=== PATIENT | female | born 1960 | race Caucasian/White ===

== ENCOUNTER 2025-03-06 18:15 | Observation (INO) | payer OTHER, SELFPAY ==
[2025-03-06] VITALS (13 sets, daily range): BP systolic 82–145; BP diastolic 67–131; PULSE 83–103; RESP 14–25; TEMP 36.9; O2SAT 94–100; BMI 48.6
--- NOTE | 2025-03-06 18:41 | RAD_ITS ---
PROCEDURE: LEFT ANKLE 2 VIEWS; FOOT 2 VIEWS; TIBIA FIBULA 2 VIEWS 03/06/2025 REASON FOR EXAM: TRAUMA TECHNIQUE: Procedure Code: RADANK2; RADFO2; RADTF Modality: DX Procedure: ANKLE 2 VIEWS; FOOT 2 VIEWS; TIBIA FIBULA 2 VIEWS Laterality: Left COMPARISON: None. FINDINGS: Acute trimalleolar left ankle fracture-dislocation injury, including anteromedial dislocation of the distal tibial plafond from the talar dome. Inferiorly displaced medial malleolus fracture. Posterior superiorly displaced distal tibial posterior malleolus fracture. Laterally displaced and overriding lateral malleolus fracture. Disruption of the distal tibiofibular syndesmosis. Osseous alignment of the foot appears maintained without evidence for Lisfranc disruption. Small plantar calcaneal spur. Preserved joint spaces. Generalized soft tissue swelling about the ankle. RAD/Ankle 2 Views IMPRESSION: Acute displaced left ankle trimalleolar fracture-dislocation, as described. Reading Location: [id number]
--- NOTE | 2025-03-06 18:41 | RAD_ITS ---
PROCEDURE: LEFT ANKLE 2 VIEWS; FOOT 2 VIEWS; TIBIA FIBULA 2 VIEWS 03/06/2025 REASON FOR EXAM: TRAUMA TECHNIQUE: Procedure Code: RADANK2; RADFO2; RADTF Modality: DX Procedure: ANKLE 2 VIEWS; FOOT 2 VIEWS; TIBIA FIBULA 2 VIEWS Laterality: Left COMPARISON: None. FINDINGS: Acute trimalleolar left ankle fracture-dislocation injury, including anteromedial dislocation of the distal tibial plafond from the talar dome. Inferiorly displaced medial malleolus fracture. Posterior superiorly displaced distal tibial posterior malleolus fracture. Laterally displaced and overriding lateral malleolus fracture. Disruption of the distal tibiofibular syndesmosis. Osseous alignment of the foot appears maintained without evidence for Lisfranc disruption. Small plantar calcaneal spur. Preserved joint spaces. Generalized soft tissue swelling about the ankle. RAD/Foot 2 Views IMPRESSION: Acute displaced left ankle trimalleolar fracture-dislocation, as described. Reading Location: [id number]
--- NOTE | 2025-03-06 18:41 | RAD_ITS ---
PROCEDURE: LEFT ANKLE 2 VIEWS; FOOT 2 VIEWS; TIBIA FIBULA 2 VIEWS 03/06/2025 REASON FOR EXAM: TRAUMA TECHNIQUE: Procedure Code: RADANK2; RADFO2; RADTF Modality: DX Procedure: ANKLE 2 VIEWS; FOOT 2 VIEWS; TIBIA FIBULA 2 VIEWS Laterality: Left COMPARISON: None. FINDINGS: Acute trimalleolar left ankle fracture-dislocation injury, including anteromedial dislocation of the distal tibial plafond from the talar dome. Inferiorly displaced medial malleolus fracture. Posterior superiorly displaced distal tibial posterior malleolus fracture. Laterally displaced and overriding lateral malleolus fracture. Disruption of the distal tibiofibular syndesmosis. Osseous alignment of the foot appears maintained without evidence for Lisfranc disruption. Small plantar calcaneal spur. Preserved joint spaces. Generalized soft tissue swelling about the ankle. RAD/Tibia & Fibula 2 Views IMPRESSION: Acute displaced left ankle trimalleolar fracture-dislocation, as described. Reading Location: [id number]
--- NOTE | 2025-03-06 18:46 | EDS_ITS ---
HPI History of Present Illness Chief Complaint: Lower Extremity Injury Narrative Narrative: Chief complaint and HPI: 64-year-old female with past medical history of DM, HTN, GERD, CKD presents for evaluation of left ankle pain. Patient states she was throwing away her water bottle in which she did not realize there was uneven ground. She tripped and landed on her left ankle. Obvious deformity to the left ankle. Denies any numbness or tingling. Denies any her head. No LOC. Not on blood thinners. Denies injury elsewhere. Review of systems: See HPI Medications: As listed on the chart Allergies: As listed on the chart PFSH: Per chart Vital signs: As listed on the chart. Reviewed. Physical exam: Gen: A&O x3, NAD Head: Normocephalic, atraumatic Eyes: No sclera icterus, conjunctiva clear ENT: Moist mucous membranes Neck: Full range of motion CV: RRR, no murmurs Resp: Lungs CTA BL, no w/r/c GI: Abd soft, non-distended, non-tender, no r/r/g Musc: Full ROM of all the extremities except for left lower extremity due to left ankle pain with obvious deformity, DP/PT pulses +2 bilaterally, compartments soft, normal capillary refill, sensation intact, knee without tenderness Skin: Warm, dry Neuro: Alert, oriented, grossly intact Psych: Cooperative, appropriate mood and affect [facility] Medical History (Updated 03/06/25 @ 18:24 by Trent Parekh) Stage 3 chronic kidney disease Nephrotic syndrome, focal and segmental glomerular lesions CPAP (continuous positive airway pressure) dependence Sleep apnea Diabetes mellitus Hypertension Hypercholesterolemia GERD (gastroesophageal reflux disease) Asthma Anemia Allergy/AdvReac Type Severity Reaction Status Date / Time diphenhydramine (From AdvReac Mild RESTLESS Verified 03/06/25 18:17 Benadryl) Social History Smoking Status: Never smoker EXAM Physical Exam Const Vital Signs: 03/06/25 18:16 03/06/25 19:49 03/06/25 19:49 Temperature 98.4 F Temperature Source Oral Pulse Rate 83 Pulse Rate [1 (Initial Baseline)] Pulse Rate [2] Pulse Rate [3] Pulse Rate [4] Respiratory Rate 14 Respiratory Rate [1 (Initial Baseline)] Respiratory Rate [2] Respiratory Rate [3] Respiratory Rate [4] Blood Pressure 136/82 H Blood Pressure [1 (Initial Baseline)] Blood Pressure [2] Blood Pressure [3] Blood Pressure [4] Blood Pressure Mean 100 Baseline BP Pulse Ox 97 96 Oxygen Delivery Method Room Air Room Air Oxygen Delivery Method [1 (Initial Baseline)] Oxygen Delivery Method [2] Oxygen Delivery Method [3] Oxygen Delivery Method [4] Oxygen Flow Rate (L/min) Oxygen Flow Rate (L/min) [1 (Initial Baseline)] Oxygen Flow Rate (L/min) [2] Oxygen Flow Rate (L/min) [3] Oxygen Flow Rate (L/min) [4] EtCo2 - Document during CPR and with ROSC 34 EtCo2 - Document during CPR and with ROSC [1 (Initial Baseline)] EtCo2 - Document during CPR and with ROSC [2] EtCo2 - Document during CPR and with ROSC [3] EtCo2 - Document during CPR and with ROSC [4] 03/06/25 19:57 03/06/25 20:10 03/06/25 20:12 Temperature Temperature Source Pulse Rate 91 90 Pulse Rate [1 (Initial Baseline)] 97 Pulse Rate [2] 101 H Pulse Rate [3] Pulse Rate [4] Respiratory Rate 14 19 H Respiratory Rate [1 (Initial Baseline)] 21 H Respiratory Rate [2] 16 Respiratory Rate [3] Respiratory Rate [4] Blood Pressure 138/79 H 123/71 H Blood Pressure [1 (Initial Baseline)] 145/67 H Blood Pressure [2] 137/80 H Blood Pressure [3] Blood Pressure [4] Blood Pressure Mean Baseline BP 138/79 Pulse Ox 95 98 Oxygen Delivery Method Room Air Nasal Cannula Oxygen Delivery Method [1 (Initial Baseline)] Nasal Cannula Oxygen Delivery Method [2] Nasal Cannula Oxygen Delivery Method [3] Oxygen Delivery Method [4] Oxygen Flow Rate (L/min) 2 Oxygen Flow Rate (L/min) [1 (Initial Baseline)] 2 Oxygen Flow Rate (L/min) [2] Oxygen Flow Rate (L/min) [3] Oxygen Flow Rate (L/min) [4] EtCo2 - Document during CPR and with ROSC 30 33 EtCo2 - Document during CPR and with ROSC [1 (Initial Baseline)] 30 EtCo2 - Document during CPR and with ROSC [2] 30 EtCo2 - Document during CPR and with ROSC [3] EtCo2 - Document during CPR and with ROSC [4] 03/06/25 20:15 03/06/25 20:20 03/06/25 22:50 Temperature Temperature Source Pulse Rate 94 86 94 Pulse Rate [1 (Initial Baseline)] Pulse Rate [2] Pulse Rate [3] Pulse Rate [4] Respiratory Rate 25 H 15 15 Respiratory Rate [1 (Initial Baseline)] Respiratory Rate [2] Respiratory Rate [3] Respiratory Rate [4] Blood Pressure 121/73 H 120/70 105/69 Blood Pressure [1 (Initial Baseline)] Blood Pressure [2] Blood Pressure [3] Blood Pressure [4] Blood Pressure Mean Baseline BP 105/69 Pulse Ox 97 97 94 Oxygen Delivery Method Room Air Room Air Nasal Cannula Oxygen Delivery Method [1 (Initial Baseline)] Oxygen Delivery Method [2] Oxygen Delivery Method [3] Oxygen Delivery Method [4] Oxygen Flow Rate (L/min) 97 4 Oxygen Flow Rate (L/min) [1 (Initial Baseline)] Oxygen Flow Rate (L/min) [2] Oxygen Flow Rate (L/min) [3] Oxygen Flow Rate (L/min) [4] EtCo2 - Document during CPR and with ROSC 34 33 39 EtCo2 - Document during CPR and with ROSC [1 (Initial Baseline)] EtCo2 - Document during CPR and with ROSC [2] EtCo2 - Document during CPR and with ROSC [3] EtCo2 - Document during CPR and with ROSC [4] 03/06/25 22:57 03/06/25 23:02 03/06/25 23:15 Temperature Temperature Source Pulse Rate 95 89 Pulse Rate [1 (Initial Baseline)] Pulse Rate [2] 103 H Pulse Rate [3] 93 Pulse Rate [4] 95 Respiratory Rate 20 H 15 Respiratory Rate [1 (Initial Baseline)] Respiratory Rate [2] 20 H Respiratory Rate [3] 20 H Respiratory Rate [4] 15 Blood Pressure 82/71 L 116/78 Blood Pressure [1 (Initial Baseline)] Blood Pressure [2] 143/75 H Blood Pressure [3] 141/131 H Blood Pressure [4] 127/79 H Blood Pressure Mean 74 Baseline BP Pulse Ox 100 97 Oxygen Delivery Method Nasal Cannula Nasal Cannula Oxygen Delivery Method [1 (Initial Baseline)] Oxygen Delivery Method [2] Nasal Cannula Oxygen Delivery Method [3] Nasal Cannula Oxygen Delivery Method [4] Room Air Oxygen Flow Rate (L/min) 4 2 Oxygen Flow Rate (L/min) [1 (Initial Baseline)] Oxygen Flow Rate (L/min) [2] 4 Oxygen Flow Rate (L/min) [3] 4 Oxygen Flow Rate (L/min) [4] 4 EtCo2 - Document during CPR and with ROSC 27 EtCo2 - Document during CPR and with ROSC [1 (Initial Baseline)] EtCo2 - Document during CPR and with ROSC [2] 34 EtCo2 - Document during CPR and with ROSC [3] 20 EtCo2 - Document during CPR and with ROSC [4] 28 03/06/25 23:20 03/06/25 23:25 Temperature Temperature Source Pulse Rate 91 95 Pulse Rate [1 (Initial Baseline)] Pulse Rate [2] Pulse Rate [3] Pulse Rate [4] Respiratory Rate 19 H 18 Respiratory Rate [1 (Initial Baseline)] Respiratory Rate [2] Respiratory Rate [3] Respiratory Rate [4] Blood Pressure 116/76 126/73 H Blood Pressure [1 (Initial Baseline)] Blood Pressure [2] Blood Pressure [3] Blood Pressure [4] Blood Pressure Mean Baseline BP Pulse Ox 98 95 Oxygen Delivery Method Room Air Room Air Oxygen Delivery Method [1 (Initial Baseline)] Oxygen Delivery Method [2] Oxygen Delivery Method [3] Oxygen Delivery Method [4] Oxygen Flow Rate (L/min) 97 Oxygen Flow Rate (L/min) [1 (Initial Baseline)] Oxygen Flow Rate (L/min) [2] Oxygen Flow Rate (L/min) [3] Oxygen Flow Rate (L/min) [4] EtCo2 - Document during CPR and with ROSC 30 33 EtCo2 - Document during CPR and with ROSC [1 (Initial Baseline)] EtCo2 - Document during CPR and with ROSC [2] EtCo2 - Document during CPR and with ROSC [3] EtCo2 - Document during CPR and with ROSC [4] MDM MDM MDM Narrative Medical decision making narrative: 64-year-old female with past medical history of DM, HTN, GERD, CKD presents for evaluation of left ankle pain. Patient states she was throwing away her water bottle in which she did not realize there was uneven ground. She tripped and landed on her left ankle. Obvious deformity to the left ankle. Denies any numbness or tingling. Denies any her head. No LOC. Not on blood thinners. Patient has received 10 mg of morphine prior to arrival via EMS. Differential diagnosis includes but is not limited to fracture, dislocation. Fentanyl and Zofran ordered. X-ray of the ankle, foot, tib/fib ordered. X-ray of the ankle, foot, tib-fib was personally viewed interpreted by me, ED physician. Patient has a displaced left ankle with trimalleolar fracture. Radiology in agreement. Patient will require procedural sedation for reduction and splinting. Patient received fentanyl and propofol without complications. Reduced and splinted. Repeat x-ray obtained. Repeat x-ray was personally reviewed and interpreted by me, ED physician. Improvement of dislocation and alignment. Dr. Galvan with orthopedics was consulted and patient was discussed. He reviewed the imaging. Recommended a repeat lateral x-ray. Repeat lateral x-ray shows slight dorsal subluxation. Dr. Galvan reviewed the imaging, plan is for re-reduction and splint with CT of the ankle. Patient again was sedated with propofol and fent anyl. Dr. Moy performed splinting while I performed sedation. The extremities neurovascular status was rechecked and was unchanged from the preprocedure exam. Patient tolerated this well. Postreduction x-rays and CT of the ankle ordered. Patient was taken to have CT scan before x-rays were performed. Therefore postreduction x-rays were canceled. CT scan of the ankle pending at this time.Patient signed out to oncoming physician. Final disposition pending result of CT as well as pain control. Joint Reduction with procedural sedation Indication: Trimalleolar left ankle fracture with dislocation Consent: Risks, benefits, and alternatives discussed with patient and consent obtained Procedure: The patient was given a total of 90 mg of propofol for adequate procedural sedation and 50 mg of fentanyl. The dislocation was reduced to the best of my abilities utilizing traction and rotation technique. Following reduction, immobilization was performed with splint placement. Splint was made with splint sleeve, Webril, Ortho-Glass, and Jude bandage. The extremity's neurovascular status was rechecked and was unchanged from the preprocedure exam. The extremity's neurovascular status was re-checked and was unchanged from the pre-procedure exam. The patient tolerated the procedure without complications. Time: Total intra-service time with patient for procedural sedation was 8 [address] Procedural Sedation Consent: Risks, benefits, and alternatives discussed with patient and consent obtained Medication IV: 90 mg of propofol and 50 mg of fentanyl Complication: Tolerated well without complication Time: Total intra-service time with patient was 8 minutes Impression: 1. Left trimalleolar ankle fracture with dislocation, status post reduction and splint x 2 2. Mechanical fall Radiography Diagnostic Testing: Clinical Impression(s) from Imaging Studies Ankle X-Ray 03/06/25 18:41 IMPRESSION: Acute displaced left ankle trimalleolar fracture-dislocation, as described. Reading Location: [facility] Foot X-Ray 03/06/25 18:41 IMPRESSION: Acute displaced left ankle trimalleolar fracture-dislocation, as described. Reading Location: [facility] Tibia/Fibula X-Ray 03/06/25 18:41 IMPRESSION: Acute displaced left ankle trimalleolar fracture-dislocation, as described. Reading Location: [facility] Ankle X-Ray 03/06/25 20:34 IMPRESSION: Closed reduction and splinting of the left ankle for previously described trimalleolar fracture-dislocation injury, with improved osseous alignment. Reading Location: [facility] Ankle X-Ray 03/06/25 21:56 IMPRESSION: Lateral view of the previously described trimalleolar left ankle fracture- dislocation injury status post closed reduction and splinting, as described above. Reading Location: [facility] Discharge Plan Triage Chief Complaint: Lower Extremity Injury ED Provider: Keenan Max Dx/Rx/DC Orders Primary Care Provider: AKIN RAPP Referrals: AKIN RAPP [Other] Print Language: Swedish
[2025-03-06] MEDS: fentaNYL 100 MCG/2 ML Ampul 50 MCG IV ×4 (18:47→22:47)
--- NOTE | 2025-03-06 20:34 | RAD_ITS ---
PROCEDURE: LEFT ANKLE MIN 3 VIEWS 03/06/2025 REASON FOR EXAM: S/P REDUCTION AND SPLINT TECHNIQUE: Procedure Code: RADANK Modality: DX Procedure: ANKLE MIN 3 VIEWS Laterality: Left COMPARISON: Earlier same day. FINDINGS: Status post closed reduction and splinting of the previously described trimalleolar left ankle fracture-dislocation, with improved osseous alignment with moravian of the tibiotalar articulation. Persistent widening of the medial clear space and widening/disruption of the distal tibiofibular syndesmosis. Generalized soft tissue swelling about the ankle. RAD/Ankle min 3 Views IMPRESSION: Closed reduction and splinting of the left ankle for previously described trima lleolar fracture-dislocation injury, with improved osseous alignment. Reading Location: [id number]
--- NOTE | 2025-03-06 21:56 | RAD_ITS ---
PROCEDURE: LEFT ANKLE 2 VIEWS 03/06/2025 REASON FOR EXAM: REPEAT LATERAL X-RAY TECHNIQUE: Procedure Code: RADANK2 Modality: DX Procedure: ANKLE 2 VIEWS Laterality: Left COMPARISON: Earlier same day. FINDINGS: Lateral view radiographs of the left ankle. Redemonstrated trimalleolar fracture-dislocation injury status post closed reduction and splinting. Persistent slight dorsal subluxation of the talar dome with respect to the distal tibial plafond. Mild dorsal displacement of the posterior and lateral malleolus fracture fragments. Generalized soft tissue swelling about the ankle. RAD/Ankle 2 Views IMPRESSION: Lateral view of the previously described trimalleolar left ankle fracture-dislo cation injury status post closed reduction and splinting, as described above. Reading Location: [id number]
--- NOTE | 2025-03-06 23:13 | CT_ITS ---
PROCEDURE: EXTREMITY LOWER WITHOUT CONTRA 03/06/2025 REASON FOR EXAM: FRACTURE TECHNIQUE: Procedure Code: CTELWO Modality: CT Procedure: EXTREMITY LOWER WITHOUT CONTRA Coronal and Sagittal reconstruction series were provided. CONTRAST: None. One or more dose reduction techniques were used (e.g., Automated exposure control, adjustment of the mA and/or kV according to patient size, use of iterative reconstruction technique). RADIATION DOSE SUMMARY: CTDlvol: 15.35 mGy DLP: 461 mGycm COMPARISON: Radiographs on 03/06/2025. FINDINGS: Acute displaced trimalleolar fractures. Acute nondisplaced fractures in the bases of the 2nd and 3rd metatarsal bones. Acute mildly displaced fracture of the distal aspect of the medial cuneiform bone. Soft tissue edema and swelling. Detached bone fragment adjacent to the distal aspect of the proximal phalanx of the big toe of indeterminate chronicity. Calcaneal spur formation. Enthesophyte formation at the calcaneal insertion of Achilles tendon. Tiny bone fragments are noted in the tibiotalar joint space. Mild degenerative joint disease. CT/Extremity Lower without Contra IMPRESSION: Acute displaced trimalleolar fractures. Acute nondisplaced fractures in the bases of the 2nd and 3rd metatarsal bones. Acute mildly displaced fracture of the distal aspect of the medial cuneiform lia ne. Soft tissue edema and swelling. Detached bone fragment adjacent to the distal aspect of the proximal phalanx of the big toe of indeterminate chronicity. Calcaneal spur formation. Enthesophyte formation at the calcaneal insertion of Achilles tendon. Tiny bone fragments are noted in the tibiotalar joint space. Reading [facility]
[2025-03-06] MEDS: 0.9% Normal Saline (1000mL) 1,000 ML 999 ML IV (23:18)
[2025-03-07] VITALS (7 sets, daily range): BP systolic 144–156; BP diastolic 82–100; PULSE 88–98; RESP 16–20; TEMP 36.4–36.8; O2SAT 95–97; BMI 45.7; BMI 45.5
[2025-03-07] MEDS: HYDROmorphone 0.5 MG/0.5 ML SYRINGE IV (02:23)
--- NOTE | 2025-03-07 02:57 | HP.PCM.HOS_ITS ---
HPI - General General Date of Admission: 03/07/25 Date of Service: 03/07/25 Chief Complaint: Fall, L ankle pain/deformity. HPI Narrative The patient is a 64 y/o F w/ PMHx: Morbid obesity, NISHI on BIPAP, HTN, HLD, GERD, Asthma, CKD stage III unclear subtype, Diabetes mellitus type II who presents to the [facility] ED on 03/07/2025 with history of unfortunately tripping on a bottle on the ground landing on her left ankle with significant pain and deformity following with the paresthesias but today developing pain prompted ED evaluation. Patient is actually from up near [place] but has been on a mini vacation with her . Workup in the ED included left ankle with an acute displaced left ankle trimalleolar fracture/dislocation, left foot with an acute displaced left ankle trimalar fracture/dislocation, left tib-fib with an acute displaced left ankle trimalar fracture/dislocation, left ankle with a closed reduction and splinted left ankle for previously describe trimalar fracture/dislocation injury with improved osseous alignment, lateral view the previously described trimalar left ankle fracture/dislocation injury status post closed reduction and splinting, left lower extremity CT with acute displaced trimalar fractures, acute nondisplaced fractures in the base of the 2nd and 3rd metatarsal bones, acute mildly displaced fracture of the distal aspect of the medial cuneiform bone, soft tissue edema and swelling, detached bone fragment adjacent to the distal aspect of the proximal phalanx of the big toe of indeterminate chronicity, calcaneal spur formation, NSL fight formation at the calcaneal insertion of the Achilles tendon, tiny bone fragments noted at the tibial talar joint space. ED discussed case with Dr. Galvan orthopedic surgeon. In the ED patient ministered 1 L normal saline, propofol 200 mg IV bolus x 2 for reduction, morphine 4 mg IV x 1, Dilaudid 0.5 mg IV x 1, fentanyl 50 mcg IV x 4 rounds, fentanyl 75 mcg IV x 1. Orthopedic surgeon noted no intention of acute surgical needs and likely patient will need follow-up evaluation with possible surgery in 1 to 2 weeks but given inability to walk and pain ED contacted hospitalist for consideration of skilled transition. [facility] Medical History Stage 3 chronic kidney disease Nephrotic syndrome, focal and segmental glomerular lesions CPAP (continuous positive airway pressure) dependence Sleep apnea Diabetes mellitus Hypertension Hypercholesterolemia GERD (gastroesophageal reflux disease) Asthma Anemia Home Medications ?Medication ?Instructions ?Recorded ?Last Taken ?Type diltiazem HCl 240 mg 240 mg PO DAILY 03/07/25 Unk nown History capsule,extended release 24 hr lisinopril 40 mg tablet 80 mg PO DAILY 03/07/25 Unkn own History magnesium oxide 400 mg (241.3 mg 400 mg PO BID 5 Unknown History magnesium) tablet montelukast 10 mg tablet 10 mg PO QHS 03/07/25 Unknow n History pantoprazole 40 mg tablet,delayed 40 mg PO DAILY 03/07 Unknown History release rosuvastatin 20 mg tablet 20 mg PO DAILY 03/07/25 Unkn own History semaglutide 7 mg tablet (Rybelsus) 7 mg PO DAILY 03/07 Unknown History tacrolimus 1 mg capsule, 2 mg PO BID 03/07/25 Unknown History immediate-release Allergy/AdvReac Type Severity Reaction Status Date / Time diphenhydramine (From AdvReac Mild RESTLESS Verified 03/06/25 18:17 Benadryl) Family History (Updated 03/07/25 @ 03:[address] Tonia Melton MD) Mother CVA (cerebral vascular accident) Cancer Father Dementia Surgical History (Updated 03/07/25 @ 03:[address] Tonia Melton MD) Hx of cataract extraction H/O section Social History (Updated 03/07/25 @ 03:[address] Tonia Melton MD) household members: spouse Smoking Status: Never smoker alcohol intake: never substance use type: does not use ROS ROS Narrative Admission Review of Systems: CONSTITUTIONAL: No weight loss, fever, chills, + weakness or fatigue. HEENT: Eyes: No visual loss, blurred vision, double vision or yellow sclerae. Ears, Nose, Throat: No hearing loss, sneezing, congestion, runny nose or sore throat. SKIN: No rash or itching, lesions, wounds except + stage ecchymoses, abrasions. CARDIOVASCULAR: No chest pain, chest pressure or chest discomfort, palpitations, edema, orthopnea, syncopal events. RESPIRATORY: No shortness of breath, cough or sputum, wheezing, hemoptysis. GASTROINTESTINAL: No anorexia, nausea, vomiting or diarrhea, abdominal pain, melena, BRBPR. GENITOURINARY: No dysuria, frequency, urgency or retention. NEUROLOGICAL: No headache, dizziness, syncope, paralysis, ataxia, numbness or tingling in the extremities, focal weakness, change in bowel or bladder control, seizure. MUSCULOSKELETAL: + muscle, back pain, joint pain or stiffness. HEMATOLOGIC: + Chronic anemia, no specific easy history of bleeding/bruising. LYMPHATICS: No enlarged nodes. No history of splenectomy. PSYCHIATRIC: No history of depression or anxiety. ENDOCRINOLOGIC: No reports of sweating, cold or heat intolerance. No polyuria or polydipsia. ALLERGIES: + History of asthma, allergic rhinitis. Vital Signs Vital Signs Vital Signs: 03/06/25 18:16 03/06/25 19:49 03/06/25 19:49 Temperature 98.4 F Temperature Source Oral Pulse Rate 83 Pulse Rate [1 (Initial Baseline)] Pulse Rate [2] Pulse Rate [3] Pulse Rate [4] Respiratory Rate 14 Respiratory Rate [1 (Initial Baseline)] Respiratory Rate [2] Respiratory Rate [3] Respiratory Rate [4] Blood Pressure 136/82 H Blood Pressure [1 (Initial Baseline)] Blood Pressure [2] Blood Pressure [3] Blood Pressure [4] Blood Pressure Mean 100 Baseline BP Pulse Ox 97 96 Oxygen Delivery Method Room Air Room Air Oxygen Delivery Method [1 (Initial Baseline)] Oxygen Delivery Method [2] Oxygen Delivery Method [3] Oxygen Delivery Method [4] Oxygen Flow Rate (L/min) Oxygen Flow Rate (L/min) [1 (Initial Baseline)] Oxygen Flow Rate (L/min) [2] Oxygen Flow Rate (L/min) [3] Oxygen Flow Rate (L/min) [4] EtCo2 - Document during CPR and with ROSC 34 EtCo2 - Document during CPR and with ROSC [1 (Initial Baseline)] EtCo2 - Document during CPR and with ROSC [2] EtCo2 - Document during CPR and with ROSC [3] EtCo2 - Document during CPR and with ROSC [4] 03/06/25 19:57 03/06/25 20:10 03/06/25 20:12 Temperature Temperature Source Pulse Rate 91 90 Pulse Rate [1 (Initial Baseline)] 97 Pulse Rate [2] 101 H Pulse Rate [3] Pulse Rate [4] Respiratory Rate 14 19 H Respiratory Rate [1 (Initial Baseline)] 21 H Respiratory Rate [2] 16 Respiratory Rate [3] Respiratory Rate [4] Blood Pressure 138/79 H 123/71 H Blood Pressure [1 (Initial Baseline)] 145/67 H Blood Pressure [2] 137/80 H Blood Pressure [3] Blood Pressure [4] Blood Pressure Mean Baseline BP 138/79 Pulse Ox 95 98 Oxygen Delivery Method Room Air Nasal Cannula Oxygen Delivery Method [1 (Initial Baseline)] Nasal Cannula Oxygen Delivery Method [2] Nasal Cannula Oxygen Delivery Method [3] Oxygen Delivery Method [4] Oxygen Flow Rate (L/min) 2 Oxygen Flow Rate (L/min) [1 (Initial Baseline)] 2 Oxygen Flow Rate (L/min) [2] Oxygen Flow Rate (L/min) [3] Oxygen Flow Rate (L/min) [4] EtCo2 - Document during CPR and with ROSC 30 33 EtCo2 - Document during CPR and with ROSC [1 (Initial Baseline)] 30 EtCo2 - Document during CPR and with ROSC [2] 30 EtCo2 - Document during CPR and with ROSC [3] EtCo2 - Document during CPR and with ROSC [4] 03/06/25 20:15 03/06/25 20:20 03/06/25 22:50 Temperature Temperature Source Pulse Rate 94 86 94 Pulse Rate [1 (Initial Baseline)] Pulse Rate [2] Pulse Rate [3] Pulse Rate [4] Respiratory Rate 25 H 15 15 Respiratory Rate [1 (Initial Baseline)] Respiratory Rate [2] Respiratory Rate [3] Respiratory Rate [4] Blood Pressure 121/73 H 120/70 105/69 Blood Pressure [1 (Initial Baseline)] Blood Pressure [2] Blood Pressure [3] Blood Pressure [4] Blood Pressure Mean Baseline BP 105/69 Pulse Ox 97 97 94 Oxygen Delivery Method Room Air Room Air Nasal Cannula Oxygen Delivery Method [1 (Initial Baseline)] Oxygen Delivery Method [2] Oxygen Delivery Method [3] Oxygen Delivery Method [4] Oxygen Flow Rate (L/min) 97 4 Oxygen Flow Rate (L/min) [1 (Initial Baseline)] Oxygen Flow Rate (L/min) [2] Oxygen Flow Rate (L/min) [3] Oxygen Flow Rate (L/min) [4] EtCo2 - Document during CPR and with ROSC 34 33 39 EtCo2 - Document during CPR and with ROSC [1 (Initial Baseline)] EtCo2 - Document during CPR and with ROSC [2] EtCo2 - Document during CPR and with ROSC [3] EtCo2 - Document during CPR and with ROSC [4] 03/06/25 22:57 03/06/25 23:02 03/06/25 23:15 Temperature Temperature Source Pulse Rate 95 89 Pulse Rate [1 (Initial Baseline)] Pulse Rate [2] 103 H Pulse Rate [3] 93 Pulse Rate [4] 95 Respiratory Rate 20 H 15 Respiratory Rate [1 (Initial Baseline)] Respiratory Rate [2] 20 H Respiratory Rate [3] 20 H Respiratory Rate [4] 15 Blood Pressure 82/71 L 116/78 Blood Pressure [1 (Initial Baseline)] Blood Pressure [2] 143/75 H Blood Pressure [3] 141/131 H Blood Pressure [4] 127/79 H Blood Pressure Mean 74 Baseline BP Pulse Ox 100 97 Oxygen Delivery Method Nasal Cannula Nasal Cannula Oxygen Delivery Method [1 (Initial Baseline)] Oxygen Delivery Method [2] Nasal Cannula Oxygen Delivery Method [3] Nasal Cannula Oxygen Delivery Method [4] Room Air Oxygen Flow Rate (L/min) 4 2 Oxygen Flow Rate (L/min) [1 (Initial Baseline)] Oxygen Flow Rate (L/min) [2] 4 Oxygen Flow Rate (L/min) [3] 4 Oxygen Flow Rate (L/min) [4] 4 EtCo2 - Document during CPR and with ROSC 27 EtCo2 - Document during CPR and with ROSC [1 (Initial Baseline)] EtCo2 - Document during CPR and with ROSC [2] 34 EtCo2 - Document during CPR and with ROSC [3] 20 EtCo2 - Document during CPR and with ROSC [4] 28 03/06/25 23:20 03/06/25 23:25 03/07/25 02:00 Temperature Temperature Source Pulse Rate 91 95 98 Pulse Rate [1 (Initial Baseline)] Pulse Rate [2] Pulse Rate [3] Pulse Rate [4] Respiratory Rate 19 H 18 18 Respiratory Rate [1 (Initial Baseline)] Respiratory Rate [2] Respiratory Rate [3] Respiratory Rate [4] Blood Pressure 116/76 126/73 H 156/85 H Blood Pressure [1 (Initial Baseline)] Blood Pressure [2] Blood Pressure [3] Blood Pressure [4] Blood Pressure Mean 108 Baseline BP Pulse Ox 98 95 95 Oxygen Delivery Method Room Air Room Air Room Air Oxygen Delivery Method [1 (Initial Baseline)] Oxygen Delivery Method [2] Oxygen Delivery Method [3] Oxygen Delivery Method [4] Oxygen Flow Rate (L/min) 97 Oxygen Flow Rate (L/min) [1 (Initial Baseline)] Oxygen Flow Rate (L/min) [2] Oxygen Flow Rate (L/min) [3] Oxygen Flow Rate (L/min) [4] EtCo2 - Document during CPR and with ROSC 30 33 EtCo2 - Document during CPR and with ROSC [1 (Initial Baseline)] EtCo2 - Document during CPR and with ROSC [2] EtCo2 - Document during CPR and with ROSC [3] EtCo2 - Document during CPR and with ROSC [4] Weight Weight: 301 lb 9.478 oz Body Mass Index (BMI) 48.6 Physical Exam Narrative Physical Examination: General: Awake, alert, oriented x 3 and cooperative, laying in ED bed, fatigued, reports 4-5 out of 10 in severity left ankle discomfort, dull aching throbbing. Skin: Normal color, normal turgor, no icterus, no cyanosis except occasional stage ecchymoses, abrasion. HEENT: AT/NC, EOMI, PERRLA, mildly dry MM, no carotid bruits, difficult discern JVD given thickened neck. Lungs: Mildly diminished, greater bases, proper effort, no rales, ronchi or wheezing. Heart: Regular rate and rhythm; no gallop, rub audible. Abdomen: Soft, morbidly obese, NTTP, distant BS, difficult to discern distention and HSM given habitus. Extremities: No cyanosis, no clubbing, no significant right lower extremity edema, left lower extremity status post reduction with splinting in place, able to move toes, sensation intact. Neurological: Patient awake, alert, oriented as noted, cognitive function intact; pupils equally reactive to light and accommodation, cranial nerves grossly normal, moving all 4 extremities except limited left lower extremity movement given fall with ankle fracture with recent splinting, strength severely globally decreased. Psychiatric: Affect appears fatigued, no acute evidence of depressive or anxiety feelings. Results Imaging Radiology Impression Ankle X-Ray 03/06/25 18:41 IMPRESSION: Acute displaced left ankle trimalleolar fracture-dislocation, as described. Reading Location: [id number] Foot X-Ray 03/06/25 18:41 IMPRESSION: Acute displaced left ankle trimalleolar fracture-dislocation, as described. Reading Location: [facility] Tibia/Fibula X-Ray 03/06/25 18:41 IMPRESSION: Acute displaced left ankle trimalleolar fracture-dislocation, as described. Reading Location: [facility] Ankle X-Ray 03/06/25 20:34 IMPRESSION: Closed reduction and splinting of the left ankle for previously described trimalleolar fracture-dislocation injury, with improved osseous alignment. Reading Location: [facility] Ankle X-Ray 03/06/25 21:56 IMPRESSION: Lateral view of the previously described trimalleolar left ankle fracture- dislocation injury status post closed reduction and splinting, as described above. Reading Location: [id number] Lower Extremity CT 03/06/25 23:13 IMPRESSION: Acute displaced trimalleolar fractures. Acute nondisplaced fractures in the bases of the 2nd and 3rd metatarsal bones. Acute mildly displaced fracture of the distal aspect of the medial cuneiform bone. Soft tissue edema and swelling. Detached bone fragment adjacent to the distal aspect of the proximal phalanx of the big toe of indeterminate chronicity. Calcaneal spur formation. Enthesophyte formation at the calcaneal insertion of Achilles tendon. Tiny bone fragments are noted in the tibiotalar joint space. Reading Location: [id number] Assessment & Plan Assessment/Plan (1) Closed trimalleolar fracture: PLAN: Plan The patient is a 64 y/o F w/ PMHx: Morbid obesity, NISHI on BIPAP, HTN, HLD, GERD, Asthma, Chronic anemia unclear type, CKD stage III unclear subtype, Diabetes mellitus type II who presents to the [facility] ED on 03/07/2025 with history of unfortunately tripping on a bottle on the ground landing on her left ankle with significant pain and deformity following with the paresthesias but today developing pain prompted ED evaluation. #1. Mechanical fall with acute displaced left ankle trimalleolar fracture/dislocation with significant debility, intractable pain, adult failure to thrive: Will admit to medical surgical floor, maintain on fall precautions, nonweightbearing to the left lower extremity, elevate as able, will continue ED initiated orthopedic surgery consultation with Dr. Galvan although currently no intention for acute surgical intervention reportedly but potentially the next 1 to 2 weeks and given patient is out of town recommended that she discuss with Dr. Galvan potential surgeons in her area, will have as needed pain regimen, antiemetic regimen, PT/OT/case management consulted for discharge planning and patient notes preference to potentially transition to skilled if appropriate in her area as she is from out of town. #2. Chronic Kidney Disease Stage III reported per patient but no labs available to confirm: Admission BUN/Cr pending, baseline renal function unknown, will trend to further elucidate chronicity. Per discussion with patient she is on prophylactic tacrolimus 2 mg twice daily as well as high-dose 80 mg once daily lisinopril per her planer setup operator. Discussed with patient at this time we will decrease lisinopril down to 40 mg daily. Encouraged her to follow-up and review these items. #3. Chronic anemia, unclear type: Reported per patient but no labs available, admission hemoglobin/MCV pending, baseline hemoglobin unknown, will trend to further elucidate chronicity. #4. Hypertension: Continue home regimen including diltiazem, lisinopril with hold parameters as needed, PRN hydralazine. Discussed with patient at this time we will decrease her lisinopril to 40 mg as she is reportedly on 80 mg daily per her planer setup operator. #5. Hyperlipidemia: Wilkening patient on statin therapy. #6. Diabetes mellitus type II: Hold oral home regimen, ADA diet, accu checks w/ ISS. #7. Morbid Obesity: Weight loss and lifestyle changes encouraged. #8. Chronic asthma with allergic rhinitis: Not on chronic inhaler per current list, will have as needed albuterol, encourage head of bed and I-S, Will continue patient on montelukast regimen. #9. GERD: Will continue patient on PPI. #10. NISHI: BiPAP nightly. #11. DVT prophylaxis: Lovenox. Charges/Coding Visit Charges Inpatient E&M: 71524 Init Hosp L3
[2025-03-07 06:57] LABS: Hematocrit 36.4 % (37-47); Hemoglobin 11.3 g/dL (12.0-15.0); Immature Granulocytes Count 0.080 X10^3/uL (0.0-0.0); Mean Corp Hgb Conc 31.0 g/dL (32-36); Mean Corpuscular Volume 96.6 fL (81-99); Mean Platelet Vol. 9.8 fl (6.2-12.0); NRBC Flagged by Analyzer 0 % (0-5); Platelet Count 259 K/mm3 (150-450); RBC Distribution Width CV 14.0 % (11.6-14.6); RBC Distribution Width SD 49.2 fl (35.1-43.9); Red Blood Count 3.77 M/mm3 (4.2-5.4); White Blood Count 15.6 K/mm3 (4.4-11.0)
[2025-03-07 07:23] LABS: AST(SGOT) 20 U/L (<=31); Alanine Aminotransfer ALT/SGPT 17 U/L (<=34); Albumin, Serum 3.8 g/dL (3.4-4.8); Alkaline Phosphatase 73 U/L (35-104); Anion Gap 10 (5-15); BUN 37 mg/dL (4-19); BUN/Creat Ratio 23.1 RATIO (10-20); Calcium,Total 9.0 mg/dL (7.6-11.0); Carbon Dioxide 18.1 mmol/L (21.0-32.0); Chloride 112 mmol/L (98-108); Estimated Creatinine Clearance 48.13 ml/min (50-250); Globulin 3.2 g/dL (2.2-4.2); Glucose 137 mg/dL (70-99); Potassium 5.3 mmol/L (3.3-5.1)
[2025-03-07] MEDS: CLARIFY ORDER 1 EACH NOTE ×2 (08:04→11:15)
[2025-03-07] MEDS: Senna/Docusate Sodium 1 Tablet 2 TABLET PO ×2 (08:08→23:14)
--- NOTE | 2025-03-07 11:35 | CASEMGMT ---
Addendum entered by Shashi Conn 03/07/25 13:20: Pt made aware unable to locate a knee sling for walker @ any local DME companies, but that they are available on [employer]. Pt went on [employer] and has ordered the knee sling and states it should arrive @ her home tomorrow. She states she thinks they may already have a walker w/wheels, in addition to a rollator. Her family is checking on this and she will also check to see if the W/C is available. She states if they have the WW and W/C, she feels safe discharging home today and denies needing other DME. Addendum entered by Shashi Conn 03/07/25 12:10: Pt states she was in [place] for a [employer] booking [employer]. She lives about an hour away. She plans to f/u with a surgeon closer to where she lives. Original Note: RN?CM?ASSESSMENT ? RN?CM?to room to meet with patient for initial transition planning/care coordination?assessment.?RN?CM?introduced self and role at [facility].? Pt voices understanding and consents to?assessment?at this time.? Pt sitting up in chair in room in no distress at this time.? Pt is A/O at this time and answers all questions appropriately.?? Care providers, pharmacy, and demographics verified/updated at this time. ? Strata: 1 PCP: Dr Vivian Bermeo Specialists: Dr Lacho Weir-nephrology Preferred Pharmacy: [facility] @ discharge. Otherwise, goes to [facility] [place] Insurance:[facility]. Prescription Benefit:?Yes LNOK: , Lj. Daughter Living Arrangements: Pt lives in 2-story home w/3 steps to enter w/handrail on one side. Pt lives w/her , her mother, 31-yr-old daughter and grandson. Pt's bedroom is on the 2nd floor and there are 2 full bathrooms on the 2nd floor. There is a 1/2 bath on 1st floor. Pt states she could either sleep on the couch on the 1st floor or on the recliner until she is able to get up the stairs. She feels she is able to get up the 3 steps into the home. Pt was independent w/ADL's and IADL's and works from home. Daughter helps w/home mgnt tasks. Transportation:?Pt and both drive. will be coming to take pt home @ discharge. DME: States has the following DME:?shower chair, grab bars, CPAP, rollator (is her mom's but she does not use it), adjustable bed. She thinks they have a W/C in the basement, she will have her check. She has access to a knee scooter. Pt would like a walker w/knee sling @ discharge and she denies having preference of DME co. She denies having other DME needs. HHC/SNF: No hx of either. ? Discussed discharge planning. Pt wishes to return home. She declines the need for HHC or OP therapy. Made aware to f/u with her PCP if she changes her mind once returning home. Pt wishes to return home and states has no further concerns with going home at time of discharge. CM?to follow for any further discharge planning/needs.? Advised pt to ask for?CM?if any further questions/concerns/needs arise.? Voices understanding. ? PLAN:??Home w/walker and knee sling. ? Lyn BSN?RN?CM
--- NOTE | 2025-03-07 14:26 | CASEMGMT ---
Addendum entered by Tasha Plaza 03/07/25 14:49: Provided pt with FWW per request of [facility]. Pt signed consignment form and uploaded and sent to [facility] via [employer]. Original Note: RN CM into pt room, pt lying in bed in no distress. Pt states she does not know if she has a FWW. Pt called dtr while RN CM in room, she states they do not have a FWW. Provided pt with a verbal local in network list of DME providers, pt chose [facility]. Referral sent to [facility] for FWW. Pt states her knee sling will arrive tomorrow from [employer] to her home. Pt denies any further needs.
--- NOTE | 2025-03-07 15:06 | PCM.HOSP.N ---
Hospitalist Note Patient was seen and examined today, she sustained a left trimalleolar fracture from a fall at home. She ordered a knee walker from [employer], it will be delivered tomorrow, until then the patient will stay in the hospital be seen by PT and OT. She will need follow-up with orthopedic surgery as an outpatient. If the patient remains medically stable, discharge can be considered on 03/08/2025
--- NOTE | 2025-03-07 16:30 | CON.PCM_ITS ---
Assessment & Plan Assessment/Plan (1) Closed trimalleolar fracture: (2) Metatarsal fracture: (3) Foot, fracture, cuneiform: (4) Fall: PLAN: Plan Patient seen and evaluated bedside with present. I did review radiographs demonstrating unstable trimalleolar displaced fracture of the left ankle prereduction. Postreduction films were also reviewed with improvement noted, however instability does remain secondary to nature of the fracture. AO splint is intact to the left lower extremity. CT was also obtained for fracture evaluation/surgical planning. These were reviewed. I did discuss with the patient the nature of her fracture in addition to the instability and the need for surgical intervention. Patient had been immobilized however soft tissue swelling and ecchymosis required delay due to risk of possible fracture blistering. I discussed with the patient to recommend delaying surgical intervention for next 7 to 10 days prior to undergoing ORIF as she is also a diabetic and fracture blistering would lead to wound dehiscence and infection complication. Patient is understanding of these risks and the need for surgical fixation. Patient states that she does not live around [place] and does live in [place], [place] which is roughly 1 hour away. She request surgical intervention closer to her home. I did discuss with her it is important to remain nonweightbearing to the left lower extremity at all times due to instability of the fracture and further displacement. She will utilize assistance of walker to maintain compliance. Discussed keeping the AO splint clean, dry, and intact to the left lower extremity. She is to also to elevate the leg at all times of rest for edema control. May continue to apply ice behind the left knee for pain control. She will continue to take all pain medication as directed. Recommended extra strength Tylenol between dosing and avoidance of ibuprofen as she is a diabetic with renal impairment. Medicine team currently following for medical management, they are appreciated Due to the need to delay ORIF as stated above and her wishes to have the surgical procedure closer to her home so that she may follow for continued postoperative visits she may be discharged once stable. She will follow-up with provider of her choice for the surgical intervention closer to her home town. Podiatry to sign off Juan Quesada Jr. D.P.M. [facility] [phone] HPI Consult Data Date of Consult: 03/07/25 HPI Narrative Reason for Consultation: Displaced trimalleolar fracture left ankle HPI Narrative: ADIA PHAN, is a 64 F who presents to [facility] secondary to fall in which she had fractured her left ankle evening of 03/06/2025. She has PMHx of DM type II, CKD stage III, morbid obesity, NISHI on BiPAP, HTN, HLD, GERD, asthma. Patient reports that she was in town for a scrapbooking conference and had just gotten to the hotel when she did not see a small step up and tripped resulting in fracture of the left ankle. She was brought to [facility] where radiographs were obtained of the left ankle demonstrating displaced trimalleolar fracture and this underwent reduction in ED with splinting. Patient was unable to utilize crutches at the time and was admitted for pain control. Hospitalist did discuss case with Dr. Galvan and due to accompanying nondisplaced fractures of the base of the 2nd and 3rd metatarsal bones and medial cuneiform bone was referred to podiatry for management of the left lower extremity. CT was ordered for fracture planning. PT did work with her for nonweightbearing status with utilization of a walker and she is noted to do fairly well with this. Podiatry consulted for further evaluation. [facility] Medical History (Updated 03/07/25 @ 04:52 by Monse Garza) Kidney disease Stage 3 chronic kidney disease Nephrotic syndrome, focal and segmental glomerular lesions CPAP (continuous positive airway pressure) dependence Sleep apnea Diabetes mellitus Hypertension Hypercholesterolemia GERD (gastroesophageal reflux disease) Asthma Anemia Home Medications ?Medication ?Instructions ?Recorded ?Last Taken ?Type allopurinol 100 mg tablet 100 mg PO BID gout 03/07/25 Unknown History calcium carbonate 1,200 mg PO DAILY supplement 03/07/25 Unknown History cholecalciferol (vitamin D3) 50 50 mcg PO DAILY supple ment 03/07/25 Unknown History mcg (2,000 unit) tablet (D3 DOTS) diltiazem HCl 240 mg 240 mg PO .HS heart palpitat ions 03/07/25 Unknown History capsule,extended release 24 hr ferrous sulfate 325 mg (65 mg 325 mg PO TID anemia Unknown History iron) tablet furosemide 40 mg tablet (Lasix) 40 mg PO PRN water pil l 03/07/25 Unknown History lisinopril 40 mg tablet 40 mg PO BID hypertension 03/06/25 09:00 History magnesium oxide 400 mg (241.3 mg 400 mg PO BID gout Unknown History magnesium) tablet montelukast 10 mg tablet 10 mg PO QHS asthma 03/07/25 Unknown History multivitamin (Daily Multi-Vitamin 1 tab PO DAILY suppl ement 03/07/25 Unknown History tablet) pantoprazole 40 mg tablet,delayed 40 mg PO DAILY GERD 03/07/25 Unknown History release patiromer calcium sorbitex 8.4 8.4 g PO .3x/week high potassium 03/07/25 03/05/25 History gram oral powder packet (Veltassa) rosuvastatin 20 mg tablet 20 mg PO .HS hypercholestero lemia 03/07/25 Unknown History semaglutide 7 mg tablet (Rybelsus) 7 mg PO DAILY DM Unknown History tacrolimus 1 mg capsule, 1 mg PO BID NSFS 03/07/25 Un known History immediate-release Allergy/AdvReac Type Severity Reaction Status Date / Time diphenhydramine (From AdvReac Mild RESTLESS Verified 03/06/25 18:17 Benadryl) Family History (Updated 03/07/25 @ 03:[address] Tonia eMlton MD) Mother CVA (cerebral vascular accident) Cancer Father Dementia Surgical History (Updated 03/07/25 @ 03:[address] Tonia Melton MD) Hx of cataract extraction H/O section Social History (Updated 03/07/25 @ 03:[address] Tonia Melton MD) household members: spouse Smoking Status: Never smoker alcohol intake: never substance use type: does not use ROS Constitutional Constitutional: Denies fatigue, fever(s), malaise or weakness Eyes Eyes: Denies diplopia or loss of vision ENT HEENT: Denies dizziness, dysphagia, headache(s) or rhinorrhea Cardiovascular Cardiovascular: Denies chest pain, claudication or palpitations Respiratory/Chest Respiratory/Chest: Denies cough, dyspnea or shortness of breath at rest Gastrointestinal Gastrointestinal: Denies abdominal pain, constipation, diarrhea, nausea or vomiting Genitourinary Genitourinary: Denies dysuria, hematuria or urinary urgency Musculoskeletal Musculoskeletal: Denies joint pain, joint stiffness or joint swelling Integumentary Integumentary: Denies lesions, pruritus or rash Neurologic Neurologic: Denies dizziness, numbness or seizures Psychiatric Psychiatric: Denies anxiety or depression Endocrine Endocrinology: Denies polydipsia, polyphagia or polyuria Hematologic/Lymphatic Hematologic/Lymphatic: Denies easy bleeding or easy bruising Allergic/Immunologic Allergic/Immunologic: Denies wheezing Physical Exam Const alert, oriented x3 and no apparent distress General Appearance: cooperative HEENT Head and Scalp: normocephalic Eyes General Eye: normal appearance of both eyes Neck General: normal visual inspection Lymph Lymphatic: no lymphadenopathy noted and no lymphedema noted Resp normal respiratory effort Cardio regular rate and regular rhythm Extremity no calf tenderness Extremity Narrative: Left lower extremity: Vascular: DP and PT pulses palpable. CFT is less than 3 seconds to digits. Normal temperature gradient. Digital hair growth is appreciated. Neurologic: Gross sensation intact. Protective sensation not tested secondary to splint application Musculoskeletal: There is pain to palpation about the medial malleoli, lateral malleoli, and Kager's triangle region near posterior malleoli secondary to displaced trimalleolar ankle fracture. Muscle strength is deferred secondary to ankle fracture. No pain to palpation of calf. Dermatologic: There is significant soft tissue swelling and ecchymosis about the ankle secondary to fracture. AO splint in place following reduction. Lab / Micro Data 03/07/25 06:20 03/07/25 06:20 Labs: Laboratory Results - last 24 hr 03/07/25 05:05: POC Glucose 142 H 03/07/25 06:20: WBC 15.6 H, RBC 3.77 L, Hgb 11.3 L, Hct 36.4 L, MCV 96.6, MCH 30.0, MCHC 31.0 L, RDW Std Deviation 49.2 H, RDW Coeff of Mesfin 14.0, Plt Count 259, MPV 9.8, Immature Gran % (Auto) 0.500, Neut % (Auto) 74.0 H, Lymph % (Auto) 15.5 L, [place] % (Auto) 9.2, Eos % (Auto) 0.5, Baso % (Auto) 0.3, Absolute Neuts (auto) 11.5 H, Absolute Lymphs (auto) 2.42, Nucleated RBC % 0, Sodium 140, P otassium 5.3 H, Chloride 112 H, Carbon Dioxide 18.1 L, Anion Gap 10, BUN 37 H, C reatinine 1.60 H, Estim Creat Clear Calc 48.13 L, Est GFR (MDRD) Non-Af 36 L, B UN/Creatinine Ratio 23.1 H, Glucose 137 H, Calcium 9.0, Total Bilirubin 0.23, AST 20, ALT 17, Alkaline Phosphatase 73, Total Protein 7.0, Albumin 3.8, Globulin 3.2, Albumin/Globulin Ratio 1.2 03/07/25 07:07: POC Glucose 140 H 03/07/25 11:01: POC Glucose 131 H Imaging Radiology Impression Ankle X-Ray 03/06/25 18:41 IMPRESSION: Acute displaced left ankle trimalleolar fracture-dislocation, as described. Reading Location: [facility] Foot X-Ray 03/06/25 18:41 IMPRESSION: Acute displaced left ankle trimalleolar fracture-dislocation, as described. Reading Location: [facility] Tibia/Fibula X-Ray 03/06/25 18:41 IMPRESSION: Acute displaced left ankle trimalleolar fracture-dislocation, as described. Reading Location: [facility] Ankle X-Ray 03/06/25 20:34 IMPRESSION: Closed reduction and splinting of the left ankle for previously described trimalleolar fracture-dislocation injury, with improved osseous alignment. Reading Location: [facility] Ankle X-Ray 03/06/25 21:56 IMPRESSION: Lateral view of the previously described trimalleolar left ankle fracture- dislocation injury status post closed reduction and splinting, as described above. Reading Location: [facility] Lower Extremity CT 03/06/25 23:13 IMPRESSION: Acute displaced trimalleolar fractures. Acute nondisplaced fractures in the bases of the 2nd and 3rd metatarsal bones. Acute mildly displaced fracture of the distal aspect of the medial cuneiform bone. Soft tissue edema and swelling. Detached bone fragment adjacent to the distal aspect of the proximal phalanx of the big toe of indeterminate chronicity. Calcaneal spur formation. Enthesophyte formation at the calcaneal insertion of Achilles tendon. Tiny bone fragments are noted in the tibiotalar joint space. Reading Location[facility]
[2025-03-08 02:25] VITALS: BP 141/84; PULSE 92; RESP 20; TEMP 36.9; O2SAT 98
[2025-03-08] MEDS: 0.9% Saline Lock 10 ML Syringe IV ×3 (02:28→22:48)
[2025-03-08 05:55] VITALS: BMI 45.6
[2025-03-08 09:23] VITALS: BP 132/73; PULSE 90; RESP 17; TEMP 36.5; O2SAT 96
[2025-03-08] MEDS: Senna/Docusate Sodium 1 Tablet 2 TABLET PO ×2 (09:31→21:46)
[2025-03-08 10:21] VITALS: O2SAT 94
[2025-03-08 13:43] VITALS: BP 141/72; PULSE 86; RESP 16; TEMP 36.6; O2SAT 97
[2025-03-08 15:15] VITALS: BP 117/65; PULSE 84; RESP 17; TEMP 36.9; O2SAT 95
--- NOTE | 2025-03-08 19:15 | PN.HOSP_ITS ---
Reason for Visit Chief Complaint: Fall, L ankle pain/deformity. Subjective Subjective Patient reports still having significant amount of pain and required IV pain medication, has not had bowel movement either Objective Data Objective Data Vital Signs: Vital Signs Temp Pulse Resp BP Pulse Ox O2 Del Method O2 Flow Rate 98.4 F 84 17 117/65 95 Room Air 97 03/08/25 15:15 03/08/25 15:15 03/08/25 15:15 03/08/25 15:15 03/08/25 15:15 03/08/25 15:15 03/06/25 23:20 Oxygen Flow Rate (L/min) [4] 4 Oxygen Flow Rate (L/min) [3] 4 Oxygen Flow Rate (L/min) [2] 4 Oxygen Flow Rate (L/min) [1 ( 2 Initial Baseline)] Oxygen Flow Rate (L/min) 97 Oxygen Delivery Method [4] Room Air Oxygen Delivery Method [3] Nasal Cannula Oxygen Delivery Method [2] Nasal Cannula Oxygen Delivery Method [1 ( Nasal Cannula Initial Baseline)] Oxygen Delivery Method Room Air Weight: 128.6 kg Body Mass Index (BMI) 45.6 Intake & Output: Intake and Output for Last 24 Hours 03/06/25 03/07/25 03/08/25 23:59 23:59 23:59 Intake Total 0 / 0 2300 / 2300 Balance 0 / 0 2300 / 2300 Lab / Micro Data 03/07/25 06:20 03/07/25 06:20 Labs: Laboratory Results - last 24 hr 03/07/25 23:16: POC Glucose 137 H 03/08/25 07:03: POC Glucose 106 03/08/25 11:13: POC Glucose 158 H 03/08/25 16:09: POC Glucose 140 H Physical Exam Narrative General: Alert, oriented, no apparent distress HEENT: Atraumatic, normocephalic Eyes: Anicteric, normal conjunctiva, extraocular movements grossly intact Neck: Supple Respiratory: Clear to auscultation bilaterally, normal respiratory effort Cardiovascular: Regular rate and rhythm GI: Soft, nontender, nondistended Extremities: No edema Musculoskeletal: Moving all extremities aside from left lower extremity immobilized Neuro: No overt focal neurological deficits Skin: No rashes appreciated, unable to directly visualize ankle Psych: Cooperative Assessment & Plan Assessment/Plan (1) Closed trimalleolar fracture: PLAN: Plan 64-year-old female history of NISHI on BiPAP, hypertension, GERD, asthma, nephrotic syndrome, diabetes who presented to [facility] 03/07/2025 due to a fall with left ankle pain. Reportedly she tripped on the ground and landed on her left ankle prompting her to come to the ED. In ED imaging showed left ankle with acute displaced left ankle trimalleolar fracture/dislocation, left lower extremity CT obtained which showed acute displaced trimalleolar fractures, acute nondisplaced fractures of the base of 2nd and 3rd metatarsal bones and acute mildly displaced fracture at the distal aspect of the medial cuneiform bone with soft tissue edema and swelling as well as detached bone fragment adjacent to the distal aspect of the proximal phalanx of the big toe of undetermined chronicity. Patient had ankle reduced in the ED and Dr. Galvan with Ortho was contacted and recommended admitted and he was seen in consult. # acute displaced trimalleolar fractures -CT left LE left lower extremity CT obtained which showed acute displaced trimalleolar fractures, acute nondisplaced fractures of the base of 2nd and 3rd metatarsal bones and acute mildly displaced fracture at the distal aspect of the medial cuneiform bone with soft tissue edema and swelling as well as detached bone fragment adjacent to the distal aspect of the proximal phalanx of the big toe of undetermined chronicity - Ortho ultimately recommended podiatry consult, decision was that patient would benefit from delayed surgical intervention for the next 7 to 10 days prior to undergoing ORIF due to her significant soft tissue swelling and ecchymosis that would increase risk of fracture blistering. Patient requested surgical intervention closer to home and was recommended to follow with provider in her local area on d/c - Adjusting medication regimen to allow for oral pain control, likely DC tomorrow if patient no longer requiring IV pain control # CKD - Unclear baseline, creatinine is 1.60 on presentation, will repeat -Has history of nephrotic syndrome and is on tacrolimus which was continued on presentation #Hypertension - Continue patient's diltiazem, lisinopril decreased to 40 mg on presentation #NISHI -Continue home NIPPV if applicable #Type 2 diabetes mellitus -Glucose checks and sliding scale insulin #Gout -Continue home allopurinol #GERD -Continue PPI #DVT ppx: Lovenox subcu Erum Thayer MD Charges/Coding Visit Charges Inpatient E&M: 61721 Subs Hosp L2
[2025-03-08 19:52] LABS: Hematocrit 35.8 % (37-47); Hemoglobin 11.0 g/dL (12.0-15.0); Mean Corp Hgb Conc 30.7 g/dL (32-36); Mean Corpuscular Volume 98.1 fL (81-99); Mean Platelet Vol. 9.5 fl (6.2-12.0); Platelet Count 244 K/mm3 (150-450); RBC Distribution Width CV 13.9 % (11.6-14.6); RBC Distribution Width SD 50.4 fl (35.1-43.9); Red Blood Count 3.65 M/mm3 (4.2-5.4); White Blood Count 13.7 K/mm3 (4.4-11.0)
[2025-03-08 20:10] LABS: Anion Gap 12 (5-15); BUN 43 mg/dL (4-19); BUN/Creat Ratio 22.8 RATIO (10-20); Calcium,Total 9.1 mg/dL (7.6-11.0); Carbon Dioxide 18.7 mmol/L (21.0-32.0); Chloride 107 mmol/L (98-108); Estimated Creatinine Clearance 40.98 ml/min (50-250); Glucose 125 mg/dL (70-99); Potassium 4.9 mmol/L (3.3-5.1)
[2025-03-08 21:31] VITALS: BP 133/70; PULSE 87; RESP 18; TEMP 37.1; O2SAT 97
[2025-03-08] MEDS: 0.9% Normal Saline (1000mL) 1,000 ML 50 ML IV (22:48)
[2025-03-09 04:25] VITALS: BP 107/59; PULSE 83; RESP 16; TEMP 37; O2SAT 96
[2025-03-09 05:49] VITALS: BMI 46.0
[2025-03-09 05:51] LABS: Hematocrit 34.1 % (37-47); Hemoglobin 10.6 g/dL (12.0-15.0); Mean Corp Hgb Conc 31.1 g/dL (32-36); Mean Corpuscular Volume 98.0 fL (81-99); Mean Platelet Vol. 9.8 fl (6.2-12.0); Platelet Count 227 K/mm3 (150-450); RBC Distribution Width CV 14.1 % (11.6-14.6); RBC Distribution Width SD 50.5 fl (35.1-43.9); Red Blood Count 3.48 M/mm3 (4.2-5.4); White Blood Count 12.5 K/mm3 (4.4-11.0)
[2025-03-09 06:16] LABS: Anion Gap 11 (5-15); BUN 46 mg/dL (4-19); BUN/Creat Ratio 24.7 RATIO (10-20); Calcium,Total 8.8 mg/dL (7.6-11.0); Carbon Dioxide 16.9 mmol/L (21.0-32.0); Chloride 109 mmol/L (98-108); Estimated Creatinine Clearance 41.47 ml/min (50-250); Glucose 123 mg/dL (70-99); Potassium 4.7 mmol/L (3.3-5.1)
[2025-03-09 08:58] VITALS: BP 115/59; PULSE 84; RESP 17; TEMP 36.6; O2SAT 96
[2025-03-09] MEDS: Senna/Docusate Sodium 1 Tablet 2 TABLET PO (09:00)
[2025-03-09 09:53] VITALS: O2SAT 96
--- NOTE | 2025-03-09 14:20 | PCM.DC.SUM ---
Providers Date of Admission: 03/07/25 Date of Discharge: 03/09/25 Primary Care Physician: AKIN RAPP Consultations 03/07/25 06:56 Consult: Podiatry Routine Consulting Provider: Juan Quesada Reason for Consult: Trimalleolar fracture EMERGENT Consult: No MD Notified: Yes Date Notified: 03/07/25 Time Notified: 06:56 Method of Notification: Text Reason For Visit: FALL, L ANKLE TRIMALLEOLAR FRX Diagnosis Discharge Diagnosis (1) Closed trimalleolar fracture: Status: Acute Code(s): S82.853A - Displaced trimalleolar fracture of unspecified lower leg, initial encounter for closed fracture Plan # acute displaced trimalleolar fractures # CKD unclear baseline #Hypertension #NISHI #Type 2 diabetes mellitus #Gout #GERD Medications at Discharge Home Medications allopurinol 100 mg tablet 100 mg PO BID gout 03/07/25 calcium carbonate 1,200 mg PO DAILY supplement 03/07/25 cholecalciferol (vitamin D3) 50 mcg (2,000 unit) tablet (D3 DOTS) 50 mcg PO DAILY supplement 03/07/25 diltiazem HCl 240 mg capsule,extended release 24 hr 240 mg PO .HS heart palpitations 03/07/25 ferrous sulfate 325 mg (65 mg iron) tablet 325 mg PO TID anemia 03/07/25 furosemide 40 mg tablet (Lasix) 40 mg PO PRN water pill 03/07/25 lisinopril 40 mg tablet 40 mg PO BID hypertension 03/07/25 magnesium oxide 400 mg (241.3 mg magnesium) tablet 400 mg PO BID gout 03/07/25 montelukast 10 mg tablet 10 mg PO QHS asthma 03/07/25 multivitamin (Daily Multi-Vitamin tablet) 1 tab PO DAILY supplement 03/07/25 pantoprazole 40 mg tablet,delayed release 40 mg PO DAILY GERD 03/07/25 patiromer calcium sorbitex 8.4 gram oral powder packet (Veltassa) 8.4 g PO .3x/week high potassium 03/07/25 rosuvastatin 20 mg tablet 20 mg PO .HS hypercholesterolemia 03/07/25 semaglutide 7 mg tablet (Rybelsus) 7 mg PO DAILY DM 03/07/25 tacrolimus 1 mg capsule, immediate-release 1 mg PO BID NSFS 03/07/25 oxycodone 5 mg tablet See Rx Instructions .Route .COMPLEX PRN pain 4 days #40 tabs 03/09/25 Hospital Course Summary of Care Provided Minutes Spent on Discharge: 33 Hospital Course: 64-year-old female history of NISHI on BiPAP, hypertension, GERD, asthma, nephrotic syndrome, diabetes who presented to [facility] 03/07/2025 due to a fall with left ankle pain. Reportedly she tripped on the ground and landed on her left ankle prompting her to come to the ED. In ED imaging showed left ankle with acute displaced left ankle trimalleolar fracture/dislocation, left lower extremity CT obtained which showed acute displaced trimalleolar fractures, acute nondisplaced fractures of the base of 2nd and 3rd metatarsal bones and acute mildly displaced fracture at the distal aspect of the medial cuneiform bone with soft tissue edema and swelling as well as detached bone fragment adjacent to the distal aspect of the proximal phalanx of the big toe of undetermined chronicity. Patient had ankle reduced in the ED and Dr. Galvan with Ortho was contacted and recommended admitted and he could see in consult. Ultimately given location and nature of fracture is recommended to consult podiatry, Dr. Quesada evaluated and recommended patient will need ORIF but recommended delayed surgical intervention for next 7 to 10 days due to soft tissue swelling and ecchymosis causing increased risk of fracture blistering and therefore wound dehiscence and complications especially in light of her diabetes. Adjusted patient's pain regimen to try to help make pain tolerable while awaiting follow-up. She did report desire to follow-up with somebody closer to her in [facility], advise she call PCP on Monday for recommendations but also included information for follow-up with Dr. Quesada if she would like to follow-up with the provider she saw. On day of discharge patient's pain is under better control than it was though still having significant pain, discussed managing pain but that would not be able to completely take away the pain given her need for surgical intervention and multiple fractures and patient verbalized her understanding. After discussing risks and benefits of discharge home ultimately patient agreeable. Reportedly family was moving her bed down to the living room and making house more accessible, patient also had walker delivered so that she could maintain nonweightbearing status. Did note she is still working on having a bowel movement but no abdominal pain or nausea, eating well and no complaints with urination. No new or acute complaints on day of discharge. Discharge instructions as follows: -Remain nonweightbearing to the left lower extremity at all times. Utilize walker -Elevate the leg at all times to help with swelling -Can continue to apply ice behind left knee to help with pain control. Pain medication will also be sent to preferred pharmacy on file. It is also recommended to take of 1000 mg of Tylenol every 8 hours for the next 3 to 5 days to help with pain control, please avoid ibuprofen or advil/nsaids -You will need delayed surgical intervention in roughly 7-10 days. Please follow up with a provider of your choice near your home if preferable or follow up with Dr. Quesada, the [place] you saw in the hospital, on discharge to further coordinate surgical intervention. Please call your PCP on discharge to ask about providers near you to arrange follow up -Please call your primary care provider's office upon discharge to schedule a hospital follow up within 1 week. -For any concerning signs or symptoms please call 911 or proceed to the nearest emergency department Physical Exam Narrative General: Alert, oriented, no apparent distress HEENT: Atraumatic, normocephalic Eyes: Anicteric, normal conjunctiva, extraocular movements grossly intact Neck: Supple Respiratory: Clear to auscultation bilaterally, normal respiratory effort Cardiovascular: Regular rate and rhythm GI: Soft, nontender, nondistended Extremities: No edema Musculoskeletal: Moving all extremities aside from left lower extremity immobilized Neuro: No overt focal neurological deficits Skin: No rashes appreciated, unable to directly visualize ankle Psych: Cooperative Weight / BMI Weight Weight: 130 kg Body Mass Index (BMI) 46.0 ABG / Lab / Microbiology Data 03/09/25 05:23 03/09/25 05:23 Laboratory: Laboratory Results - last 24 hr 03/09/25 10:58: POC Glucose 153 H 03/09/25 16:39: POC Glucose 159 H D/C Instructions DC O2, CPAP, BIPAP Needs Home O2 Discharge instructions: No Meaningful Use Info Meaningful Use Meaningful Use Diagnoses (Choose all that apply): None applicable Discharge Plan Admission Admit Date/Time: 03/07/25 03:00 Primary Reason for Your Visit: Fall with ankle fracture Attending Provider: Erum Thayer Primary Care Provider: AKIN RAPP Consulting Providers: Tonia Melton; Juan Quesada; Zeke Moreland Instructions Patient Instructions: ED Fall Prevention Additional Instructions / Restrictions: DISCHARGE INSTRUCTIONS PLEASE READ *Please take this with you to your next doctors appointment* -Remain nonweightbearing to the left lower extremity at all times. Utilize walker -Elevate the leg at all times to help with swelling -Can continue to apply ice behind left knee to help with pain control. Pain medication will also be sent to preferred pharmacy on file. It is also recommended to take of 1000 mg of Tylenol every 8 hours for the next 3 to 5 days to help with pain control, please avoid ibuprofen or advil/nsaids -You will need delayed surgical intervention in roughly 7-10 days. Please follow up with a provider of your choice near your home if preferable or follow up with Dr. Quesada, the [place] you saw in the hospital, on discharge to further coordinate surgical intervention. Please call your PCP on discharge to ask about providers near you to arrange follow up -Please call your primary care provider's office upon discharge to schedule a hospital follow up within 1 week. -For any concerning signs or symptoms please call 911 or proceed to the nearest emergency department Discharge Orders/Prescriptions Prescriptions: New oxycodone 5 mg tablet See Rx Instructions .ROUTE .COMPLEX PRN (Reason: pain) 4 Days Qty: 40 0RF Rx Instructions: Please take 1.5 tabs (7.5 mg) of oxycodone up to every 4 hours as needed for pain 6-10, you may take 2 tabs (10mg) at bedtime for severe pain 8-10 Continued diltiazem HCl 240 mg capsule,extended release 24hr 240 mg PO .HS magnesium oxide 400 mg (241.3 mg magnesium) tablet 400 mg PO BID pantoprazole 40 mg tablet,delayed release (DR/EC) 40 mg PO DAILY montelukast 10 mg tablet 10 mg PO QHS lisinopril 40 mg tablet 40 mg PO BID tacrolimus 1 mg capsule 1 mg PO BID rosuvastatin 20 mg tablet 20 mg PO .HS Rybelsus 7 mg tablet 7 mg PO DAILY allopurinol 100 mg tablet 100 mg PO BID ferrous sulfate 325 mg (65 mg iron) tablet 325 mg PO TID cholecalciferol (vitamin D3) [D3 DOTS] 50 mcg (2,000 unit) tablet 50 mcg PO DAILY multivitamin [Daily Multi-Vitamin] Tablet 1 tab PO DAILY furosemide [Lasix] 40 mg tablet 40 mg PO PRN calcium carbonate 600 mg calcium (1,500 mg) tablet 1,200 mg PO DAILY Veltassa 8.4 gram powder in packet 8.4 g PO .3x/week Referrals / Follow Up: AKIN RAPP [Other] - Within 1 Week AKIN RAPP [Other] Juan Quesada DPM [Med Staff - Active Staff, Podiatry] Referral Note: You will need delayed surgical intervention in roughly 7-10 days. A follow up with a provider of your choice near your home if preferrable or follow up with Dr. Quesada, the [place] you saw in the hospital, on discharge to further coordinate surgical intervention Disposition Disposition (needs filled in before D/C Order can be placed): Home, Self Care Charges/Coding Visit Charges Inpatient E&M: 76788 Disch Hosp >30min
[2025-03-09 16:19] VITALS: BP 135/85; PULSE 85; RESP 16; TEMP 36.6; O2SAT 98
[2025-03-09 17:59] VITALS: BP 126/76; PULSE 88; RESP 16; TEMP 36.7; O2SAT 95
== END 2025-03-09 18:20 | disposition home or self-care (01) ==
LOC: ED 03-07 02:56 → MS3 03-07 03:21
PROVIDERS: Internal Medicine; Admitting Provider Family Medicine; Emergency Provider Emergency Medicine; Visit Provider Internal Medicine
DX: S82.852A Displaced trimalleolar fracture of left lower leg, initial encounter for closed fracture (principal); Z68.42 Body mass index [BMI] 45.0-49.9, adult; E66.01 Morbid (severe) obesity due to excess calories; E11.22 Type 2 diabetes mellitus with diabetic chronic kidney disease; N18.30 Chronic kidney disease, stage 3 unspecified; D64.9 Anemia, unspecified; E78.5 Hyperlipidemia, unspecified; I12.9 Hypertensive chronic kidney disease with stage 1 through stage 4 chronic kidney disease, or unspecified chronic kidney disease; J45.909 Unspecified asthma, uncomplicated; W10.8XXA Fall (on) (from) other stairs and steps, initial encounter; K21.9 Gastro-esophageal reflux disease without esophagitis; G47.33 Obstructive sleep apnea (adult) (pediatric); S92.325A Nondisplaced fracture of second metatarsal bone, left foot, initial encounter for closed fracture; S92.335A Nondisplaced fracture of third metatarsal bone, left foot, initial encounter for closed fracture; S92.242A Displaced fracture of medial cuneiform of left foot, initial encounter for closed fracture; M10.9 Gout, unspecified; Y92.009 Unspecified place in unspecified non-institutional (private) residence as the place of occurrence of the external cause; Z79.84 Long term (current) use of oral hypoglycemic drugs; Z79.899 Other long term (current) drug therapy; Y93.89 Activity, other specified; Y92.59 Other trade areas as the place of occurrence of the external cause
CPT/HCPCS: 27818; 36415; 73590; 73600; 73610; 73620; 73700; 80048; 80053; 82962; 85025; 85027; 94668; 94762; 96361; 96372; 96374; 96375; 96376; 97110; 97116; 97162; 97166; 97530; 97535; 97802; 99221; 99285; A4216; G0378; J2405